=== PATIENT | female | born 1995 | race Hispanic/Latino ===

== ENCOUNTER 2018-06-29 19:19 | Emergency (ER) | payer BC ==
[~2018-06-29 19:19] MED LIST: ISOVUE-370 76%-LOCM 1 ML ONE
[2018-06-29] MEDS ORDERED: Ketorolac Tromethamine 30 MG/ML VIAL ONE (20:51)
[2018-06-29] MEDS ORDERED: Ondansetron PF 4 MG/2 ML Vial ONE (21:35)
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
== END 2018-06-29 21:47 | disposition home or self-care (01) ==
LOC: ERS 19:19
DX: S10.93XA Contusion of unspecified part of neck, initial encounter (principal); S60.221A Contusion of right hand, initial encounter; Y04.2XXA Assault by strike against or bumped into by another person, initial encounter
CPT/HCPCS: 70498; 96374; 96375; J1885; J2405; Q9966